=== PATIENT | male | born 1965 | race Two or more races ===

== ENCOUNTER 2018-03-04 10:08 | Emergency (ER) | payer SELFPAY ==
[~2018-03-04] VITALS: Ht 177.8 cm; Wt 72.6 kg
--- NOTE | 2018-03-04 10:40 | NUR ---
PRESENTS TO ER C/O R/L ANKLE PAIN, L KNEE PAIN, L HIP, PAIN, LACERATION TO L WRIST S/P FALL OF LADDER. A/OX 4. BREATHING EVEN AND UNLABORED. NO SO, NAD, VITALS STABLE. BOTH ANKLES SWOLLEN. SAFETY AND COMFORT MEASURES IN PLACE. AWAITING MD ORDERS.
[2018-03-04] MEDS ORDERED: LIDOCAINE HCL/PF 1% 30 ML VIAL IM ONE (11:00)
--- NOTE | 2018-03-04 11:06 | NUR ---
RHIT AT BEDSIDE.
[2018-03-04] MEDS ORDERED: TDAP [DIPH/PERTUSSIS/TET] 0.5 ML VIAL IM ONE ×2 (11:51→12:00)
[2018-03-04] MEDS ORDERED: IBUPROFEN 400 MG TABLET ONE (11:58)
[2018-03-04] MEDS ORDERED: IBUPROFEN 400 MG TABLET PO ONE (12:00)
[2018-03-04 12:11] VITALS: BP 145/80
--- NOTE | 2018-03-04 12:12 | NUR ---
Crutches dispensed. Patient discharged to home in stable condition. Written and verbal after care instructions given. Patient verbalizes understanding of instruction.
== END 2018-03-04 12:12 | disposition home or self-care (01) ==
LOC: ER 10:14
DX: S61.512A Laceration without foreign body of left wrist, initial encounter (principal); S93.401A Sprain of unspecified ligament of right ankle, initial encounter; W11.XXXA Fall on and from ladder, initial encounter; Y93.89 Activity, other specified; Y92.89 Other specified places as the place of occurrence of the external cause; Y99.8 Other external cause status
CPT/HCPCS: 12002; 73610; 90471; 90715; 99284; A4606; A6402 ×2; Z7610